=== PATIENT | female | born 1960 | race African-American/Black ===

== ENCOUNTER 2018-09-27 01:39 | Inpatient (IN) | payer MEDICAID ==
[~2018-09-27] VITALS: Ht 167.6 cm; Wt 63.0 kg
[2018-09-27] MEDS ORDERED: Ketorolac 60mg Inj IM ONE (02:00)
--- NOTE | 2018-09-27 02:07 | NUR ---
ED Nurse Note: pt brought in by [facility] from 09/28 store, c/c right knee pain, per EMS report, she slipped and fell, denies head injury, cms intact, will cont monitor.
[2018-09-27] MEDS ORDERED: HYDROcodone/Acetamin 5/325 tab ORAL ONE (02:15)
--- NOTE | 2018-09-27 03:40 | NUR ---
ED Nurse Note: Received with RLE pain - pt slipped on wet floor at 711. Pt admits to alcohol and marijuana ingestion. Pt is alert and oriented x 4. Right leg with obvious deformity superior to knee. N/V intact distally. Monitor SR, no ectopy.
[2018-09-27 03:45] VITALS: BP 136/83
[2018-09-27] MEDS ORDERED: Morphine Sulfate 4mg/ml Inj (IV USE ONLY) IVP ONE (03:45)
[2018-09-27 03:55] LABS: BASOPHILS % (AUTO) 0.9 % (0.0-2.0); EOSINOPHILS % (AUTO) 0.6 % (0.0-3.0); HEMATOCRIT 40.3 % (37.0-47.0); HEMOGLOBIN 12.9 G/DL (12.0-16.0); LYMPHOCYTES % (AUTO) 35.6 % (20.0-45.0); MEAN CORPUSCULAR VOLUME 94 FL (80-99); MONOCYTES % (AUTO) 6.8 % (1.0-10.0); NEUTROPHILS % (AUTO) 56.1 % (45.0-75.0); PLATELET COUNT 243 K/UL (150-450); RED BLOOD COUNT 4.28 M/UL (4.20-5.40); RED CELL DISTRIBUTION WIDTH 13.1 % (11.6-14.8); WHITE BLOOD COUNT 4.8 K/UL (4.8-10.8)
[2018-09-27 03:57] LABS: ANION GAP 11 mmol/L (5-15); BLOOD UREA NITROGEN 13 mg/dL (7-18); CALCIUM 9.1 MG/DL (8.5-10.1); CARBON DIOXIDE 28 MMOL/L (21-32); CHLORIDE 104 MMOL/L (98-107); CREATININE 1.1 MG/DL (0.55-1.30); POTASSIUM 3.5 MMOL/L (3.5-5.1); SODIUM 143 MMOL/L (136-145)
--- NOTE | 2018-09-27 03:58 | NUR ---
HAND-OFF: Report given to [facility], PT MOVED TO ROOM 6
--- NOTE | 2018-09-27 03:58 | NUR ---
HAND-OFF: Report given to AWA Ferguson.
[2018-09-27 04:01] LABS: ALANINE AMINOTRANSFERASE 47 U/L (12-78); ALBUMIN 4.5 G/DL (3.4-5.0); ALBUMIN/GLOBULIN RATIO 1.4 (1.0-2.7); ALKALINE PHOSPHATASE 112 U/L (46-116); ASPARTATE AMINO TRANSFERASE 88 U/L (15-37); BILIRUBIN,TOTAL 0.3 MG/DL (0.2-1.0)
--- NOTE | 2018-09-27 04:09 | Emergency Room Report ---
History of Present Illness General Chief Complaint: Lower Extremity Injury Source: Patient, EMS Present Illness HPI Patient is a 57-year-old female brought in by EMS after increased right-sided knee pain acute onset after a fall from standing. Patient reports slipping and falling on wet floor. She denies loss of consciousness. She reports having pain to the right thigh. She denies any numbness or weakness to her extremity. She reports having prior history of right knee surgery x2. She normally wears a sleeve on her right thigh. She reports having significant arthritis and had previously been told she needs a knee replacement surgery. Patient reports having recent alcohol intake. She denies any other locations of pain currently. Allergies: Coded Allergies: No Known Allergies (Unverified , 09/27/18) Patient History Past Medical History: see triage record Past Surgical History: other - right knee arthroscopy X2, osteoarthritis Reviewed Nursing Documentation: PMH: Agreed; PSxH: Agreed Review of Systems All Other Systems: negative except mentioned in HPI Physical Exam Vital Signs Date Time Temp Pulse Resp B/P (MAP) Pulse Ox O2 Delivery O2 Flow Rate FiO2 09/27/18 01:44 97.5 93 18 98/63 (75) 99 Room Air Sp02 EP Interpretation: reviewed, normal General Appearance: normal inspection, well appearing, no apparent distress, alert, GCS 15 Head: atraumatic ENT: normal ENT inspection, hearing grossly normal, normal voice Neck: normal inspection, full range of motion, supple, no bony tend Respiratory: normal inspection, lungs clear, normal breath sounds, no respiratory distress, no retraction, no wheezing Cardiovascular #1: regular rate, rhythm, no edema Gastrointestinal: normal inspection, normal bowel sounds, non tender, soft, no guarding, no hernia Genitourinary: no CVA tenderness Musculoskeletal: normal inspection, back normal, normal range of motion, swelling - deformity to right distal femur Neurologic: normal inspection, alert, oriented x3, responsive, daycare teacher III-XII nml as tested, motor strength/tone normal, speech normal Psychiatric: normal inspection, judgement/insight normal, mood/affect normal Medical Decision Making Diagnostic Impression: Primary Impression: Femoral distal fracture Additional Impression: Fall ER Course Patient is a 57-year-old female presented after increased right-sided knee pain. Differential diagnosis include was not limited to fracture, contusion, dislocation among others. Patient was noted to be unable to ambulate. She had gross deformity to the distal femur. X-ray imaging of the right knee 1 view interpreted by me showed a comminuted distal femur fracture. Patient was placed in a posterior splint. She is given IV pain medications. Dr. Ct Witt was contacted for inpatient management. Dr.Raj Teague was contacted for orthopedic consult Labs Test 09/27/18 03:33 White Blood Count 4.8 K/UL (4.8-10.8) Red Blood Count 4.28 M/UL (4.20-5.40) Hemoglobin 12.9 G/DL (12.0-16.0) Hematocrit 40.3 % (37.0-47.0) Mean Corpuscular Volume 94 FL (80-99) Mean Corpuscular Hemoglobin 30.2 PG (27.0-31.0) Mean Corpuscular Hemoglobin Concent 32.0 G/DL (32.0-36.0) Red Cell Distribution Width 13.1 % (11.6-14.8) Platelet Count 243 K/UL (150-450) Mean Platelet Volume 5.4 FL (6.5-10.1) Neutrophils (%) (Auto) 56.1 % (45.0-75.0) Lymphocytes (%) (Auto) 35.6 % (20.0-45.0) Monocytes (%) (Auto) 6.8 % (1.0-10.0) Eosinophils (%) (Auto) 0.6 % (0.0-3.0) Basophils (%) (Auto) 0.9 % (0.0-2.0) Prothrombin Time 10.2 SEC (9.30-11.50) Prothromb Time International Ratio 1.0 (0.9-1.1) Activated Partial Thromboplast Time 25 SEC (23-33) Sodium Level 143 MMOL/L (136-145) Potassium Level 3.5 MMOL/L (3.5-5.1) Chloride Level 104 MMOL/L (98-107) Carbon Dioxide Level 28 MMOL/L (21-32) Anion Gap 11 mmol/L (5-15) Blood Urea Nitrogen 13 mg/dL (7-18) Creatinine 1.1 MG/DL (0.55-1.30) Estimat Glomerular Filtration Rate > 60 mL/min (>60) Glucose Level 122 MG/DL (74-106) Calcium Level 9.1 MG/DL (8.5-10.1) Total Bilirubin 0.3 MG/DL (0.2-1.0) Aspartate Amino Transf (AST/SGOT) 88 U/L (15-37) Alanine Aminotransferase (ALT/SGPT) 47 U/L (12-78) Alkaline Phosphatase 112 U/L (46-116) Total Protein 7.8 G/DL (6.4-8.2) Albumin 4.5 G/DL (3.4-5.0) Globulin 3.3 g/dL Albumin/Globulin Ratio 1.4 (1.0-2.7) EKG Diagnostic Results Rate: normal Rhythm: NSR ST Segments: no acute changes Last Vital Signs Date Time Temp Pulse Resp B/P (MAP) Pulse Ox O2 Delivery O2 Flow Rate FiO2 09/27/18 03:45 83 16 136/83 97 Room Air 09/27/18 01:44 97.5 Status: improved Disposition: ADMITTED INPATIENT Condition: Stable Referrals: NOT CHOSEN IPA/,REFERRING (PCP) Keo Moncada MD Sep 27, 2018 04:09
--- NOTE | 2018-09-27 04:10 | NUR ---
ED Nurse Note: Patient was admited to MS due to distal femoral fracture. Patient was transfered to the unit via gurney with all belongings. AAO x4, VSS at this time, skin is dry warm to touch.
--- NOTE | 2018-09-27 06:30 | NUR ---
NURSE NOTES: Received report from AWA Ferguson from ER. Will endorse to oncoming shift.
--- NOTE | 2018-09-27 06:45 | NUR ---
NURSE NOTES: Patient brought in via erney to room 315-2. Alert, oriented. Bed in low position, side rails up x2, call light within reach. Oriented to room. Encouraged to call as needed. Right knee with long posterior splint on. VS: Temp 97.8, HR 82, RR 19, BP 117/79, O2Sat on RA 98%. Will endorse to dayshift RN.
--- NOTE | 2018-09-27 07:05 | NUR ---
HAND-OFF: Report given to AWA Gilliland.
[2018-09-27 08:00] VITALS: BP 112/73
--- NOTE | 2018-09-27 08:10 | NUR ---
NURSE NOTES: Patient alert x4, on room air, no sing of distress and shortness of breath; no sing of chest pain; IV FACE 20G, flushes well; bed at lowest position, side rials up x2, breaks engaged; call light within reach; will get admission order from admitting MD. will keep monitoring.
--- NOTE | 2018-09-27 08:59 | Consultation ---
History of Present Illness General Date patient seen: Sep 27, 2018 Chief Complaint: Present Illness Allergies: Coded Allergies: No Known Allergies (Unverified , 09/27/18) Patient History Healthcare decision maker Resuscitation status Advanced Directive on File Physical Exam Last 24 Hour Vital Signs Date Time Temp Pulse Resp B/P (MAP) Pulse Ox O2 Delivery O2 Flow Rate FiO2 09/27/18 04:10 97.6 83 16 136/83 97 Room Air 09/27/18 03:45 83 16 136/83 97 Room Air 09/27/18 02:46 97.6 09/27/18 02:46 97.6 09/27/18 02:46 97.6 09/27/18 01:44 97.5 93 18 98/63 (75) 99 Room Air Intake and Output 09/26/18 09/27/18 19:00 07:00 Intake Total 10 ml Balance 10 ml Intake IV Total 10 ml Laboratory Tests Test 09/27/18 03:33 White Blood Count 4.8 K/UL (4.8-10.8) Red Blood Count 4.28 M/UL (4.20-5.40) Hemoglobin 12.9 G/DL (12.0-16.0) Hematocrit 40.3 % (37.0-47.0) Mean Corpuscular Volume 94 FL (80-99) Mean Corpuscular Hemoglobin 30.2 PG (27.0-31.0) Mean Corpuscular Hemoglobin Concent 32.0 G/DL (32.0-36.0) Red Cell Distribution Width 13.1 % (11.6-14.8) Platelet Count 243 K/UL (150-450) Mean Platelet Volume 5.4 FL (6.5-10.1) L Neutrophils (%) (Auto) 56.1 % (45.0-75.0) Lymphocytes (%) (Auto) 35.6 % (20.0-45.0) Monocytes (%) (Auto) 6.8 % (1.0-10.0) Eosinophils (%) (Auto) 0.6 % (0.0-3.0) Basophils (%) (Auto) 0.9 % (0.0-2.0) Prothrombin Time 10.2 SEC (9.30-11.50) Prothromb Time International Ratio 1.0 (0.9-1.1) Activated Partial Thromboplast Time 25 SEC (23-33) Sodium Level 143 MMOL/L (136-145) Potassium Level 3.5 MMOL/L (3.5-5.1) Chloride Level 104 MMOL/L (98-107) Carbon Dioxide Level 28 MMOL/L (21-32) Anion Gap 11 mmol/L (5-15) Blood Urea Nitrogen 13 mg/dL (7-18) Creatinine 1.1 MG/DL (0.55-1.30) Estimat Glomerular Filtration Rate > 60 mL/min (>60) Glucose Level 122 MG/DL (74-106) H Calcium Level 9.1 MG/DL (8.5-10.1) Total Bilirubin 0.3 MG/DL (0.2-1.0) Aspartate Amino Transf (AST/SGOT) 88 U/L (15-37) H Alanine Aminotransferase (ALT/SGPT) 47 U/L (12-78) Alkaline Phosphatase 112 U/L (46-116) Total Protein 7.8 G/DL (6.4-8.2) Albumin 4.5 G/DL (3.4-5.0) Globulin 3.3 g/dL Albumin/Globulin Ratio 1.4 (1.0-2.7) Height (Feet): 5 Height (Inches): 6.00 Weight (Pounds): 140 Assessment/Plan Assessment/Plan: (1) Right knee pain (2) S/P Fall (3) Distal femur fx (4) Right knee OA seen dictated Suhail Valero Sep 27, 2018 08:59
[2018-09-27] MEDS: Morphine Sulfate 4mg/ml Inj (IV USE ONLY) IVP PRN ×2 (09:25→17:22)
--- NOTE | 2018-09-27 09:36 | NUR ---
NURSE NOTES: I communicated MD Treviño to get admission order. Waiting for order.
[2018-09-27 12:00] VITALS: BP 129/83
[2018-09-27] MEDS: HYDROcodone/Acetamin 10/325 tab ORAL PRN ×2 (12:29→20:31)
--- NOTE | 2018-09-27 14:04 | NUR ---
CHARGE NURSE NOTE: Received call from [facility] ([place]). She asked for pt's face sheet. She informed that pt will be transferred to [facility] (according to for distal femur fracture surgery). So far no bed available. Pt is on NPO. was called, message left.
--- NOTE | 2018-09-27 14:45 | Diagnostic Imaging Report ---
Indications: Right knee pain after slip and fall Technique: Two views of the right femur Comparison: None Findings: There is a comminuted fracture of the distal femoral diaphysis. This is displaced laterally by about one half bone width, impacted by about 2 cm. No definite proximal fracture demonstrated, although the proximal femur is not well visualized. Impression: Positive for distal femoral fracture
--- NOTE | 2018-09-27 15:00 | NUR ---
NURSE NOTES: Specimen for urine collection provided to patient. music assistant Michael is aware.
--- NOTE | 2018-09-27 15:29 | Diagnostic Imaging Report ---
Indication: Cough Technique: One view of the chest Comparison: none Findings: Lungs and pleural spaces are clear. Heart size is normal Impression: No acute process
[2018-09-27 16:00] VITALS: BP 135/84
--- NOTE | 2018-09-27 17:43 | NUR ---
CASE MANAGEMENT: INITIAL REVIEW 09/27/2018 57 YO F ROSSI FROM 09/28 STORE CC: LOWER EXTREMITY INJURY PMHx: RIGHT KNEE ARTHROSCOPY X2. OA. SI:DISTAL FEMUR FRACTURE. T 97.5 HR 93 RR 18 B/P 98/63 SATS 99% ON RA GLU 122 AST 88 IS: NS BOLUS X1 MORPHINE IV X1 XRAY FEMUR Impression: Positive for distal femoral fracture CXR Impression: No acute process PATIENT ADMITTED TO MED/SURG 09/27/2018 @ 0420 DCP: PATIENT TO BE DISCHARGED TO HOME ONCE MEDICALLY CLEARED. PLAN OF CARE: ORTHO CONSULT Addendum: 09/28/18 at 1028 by Gwen Brown CM INTERQUAL MET
--- NOTE | 2018-09-27 19:44 | NUR ---
HAND-OFF: Report given to AWA [place].
--- NOTE | 2018-09-27 19:45 | NUR ---
NURSE NOTES: Receive a report from AWA Magana. Done rounds. Pt is lying in bed with right leg immobilized. Awake and alert. Will continue to monitor.
[2018-09-27 20:00] VITALS: BP 145/86
[2018-09-27] MEDS: Heparin 5000 units/ml inj SUBQ SCH (20:32)
--- NOTE | 2018-09-27 21:00 | Consultation ---
DATE OF CONSULTATION: 09/27/2018 CONSULTING PHYSICIAN: León Teague M.D. CHIEF COMPLAINT: Right leg pain. HISTORY OF PRESENT ILLNESS: The patient is a 57-year-old female who sustained a fall at a certain level and subsequently had significant pain in the right thigh. She was brought to the hospital, diagnosed with a distal femur fracture. Orthopedic consultation obtained for further care and recommendation. PAST MEDICAL HISTORY: Reviewed in the intake chart. PAST SURGICAL HISTORY: Reviewed in the intake chart. MEDICATIONS: Reviewed in the intake chart. PHYSICAL EXAMINATION: General: Alert and oriented. Resting comfortably in bed. Vitals signs stable. No apparent distress EXTREMITIES: Shows posterior splint in place. There is moderate swelling in the right thigh. Dorsalis pedis +2. Posterior calf is soft. Neurovascular is normal. DIAGNOSTIC DATA: Imaging study showed comminuted distal third femur fracture with extension in the intra-articular joint on the lateral view. Moderate arthritis of knee joint. ASSESSMENT: Left comminuted distal third right femur fracture. DISCUSSION: At this point, the patient needs operative fixation with open reduction and internal fixation either with a nail or plate. She has moderate swelling at this point. Given the complexity of the fracture, she needs to be transferred to a higher level of care. I have spoken to Dr Ma who is a traumatologist at [facility] who is willing to accept transfer of her care for higher level of care. I have spoken to [facility] transfer center and placed her on the transfer list. They currently do not have any beds but she will be placed on the list for transfer pending verification. Given the level of care and the comminution at the fracture site, this is not something that I feel comfortable addressing. The patient is in no acute risk of having any loss of function of a limb. More importantly I am leaving Tuesday for a couple of weeks and do not feel comfortable performing complicated surgery and not being available for any issues postop. Patient will need CT of right femur which can be done by accepting facility. She is maintained on SCD and heparin 5000 units SQ for DVT prophalsis. Continue splint and elevation to allow time for swelling to decrease. Pain management as per PMD. I spoke to patient and communited my concerns with the patient who understands my concerns and is willing to get transfer to another facility for definetive fixation. Please reconsult as needed however I am not available for the next 2-3 weeks. León Teague M.D. DR: XANDER JOB#: [id number] CC: DANNA
--- NOTE | 2018-09-27 21:00 | NUR ---
NURSE NOTES: Pt is awake alert. Breathing is even and non labored. Right leg on fx site pain persist. Given prn [place] 10/325mg 1 t po. Keep right leg straightened. Pt has not voided for urine lab yet. Leave call light within reach. Bed is locked and lowest position. Will continue to follow up urine sample and pt's pain.
[2018-09-28] VITALS: BP 135/86
[2018-09-28] MEDS: Morphine Sulfate 4mg/ml Inj (IV USE ONLY) IVP PRN ×3 (02:02→20:26)
--- NOTE | 2018-09-28 03:30 | Consultation ---
DATE OF CONSULTATION: 09/27/2018 PAIN MANAGEMENT CONSULTATION CONSULTING PHYSICIAN: Fab Gross M.D. REFERRING PHYSICIAN: Ct Treviño M.D. PHYSICIAN TUMBLER DYEING MACHINE OPERATOR: Eldon Lemon CHIEF COMPLAINT: Right knee pain. HISTORY OF PRESENT ILLNESS: This is a 57-year-old female, who is being seen on telemetry floor of [facility] for initial pain management consultation. The patient was admitted under the care of Dr. Treviño for right knee pain. Reports that she had a fall last night. It is acute, constant, rating at 8/10, describing the pain as throbbing and shooting pain, increased with movement causing pain. She reports that she had a slip and fall in a 09-28. She was brought into the emergency room. X-ray was done, positive for distal femoral fracture. Awaiting to be seen by orthopedic surgeon. She has taken morphine 4 mg IV in the ER with Toradol 30 mg IV with minimal pain relief. Due to this, we were consulted so patient has adequate pain control while here in the hospital. PAST MEDICAL HISTORY: Graves disease. PAST SURGICAL HISTORY: Right knee surgery. SOCIAL HISTORY: She is smoker. Drinks alcohol. Denies IV drugs. ALLERGIES: No known drug allergies. MEDICATIONS: Levothyroxine. REVIEW OF SYSTEMS: Denies rash, fever, chills, sweating, dizziness, drowsiness, blurred vision, sore throat, or change in weight. No shortness of breath or chest pain. No nausea, vomiting, or blood in stool or urine. No bowel or bladder incontinence. PHYSICAL EXAMINATION: GENERAL: Alert, awake, and oriented. VITAL SIGNS: Blood pressure 136/83, heart rate 83, oxygen saturation is 97%, and respiratory rate 16. HEENT: PERRLA. NECK: Range of motion is full in all directions. No tenderness to paracervical muscles. No adenopathy. LUNGS: Decreased breath sounds bilaterally. HEART: S1 and S2 regular. ABDOMEN: Soft, nontender. BACK: Range of motion is full in extension. EXTREMITIES: Upper extremities range of motion is full in all directions. No cyanosis. No clubbing. No edema. Sensory is intact. Reflexes are not obtainable. No adenopathy. Lower extremities, range of motion is decreased due to the patient's pain and condition with tenderness to palpation of the right knee. No cyanosis. No clubbing. Sensory is reduced. Reflexes are not obtainable. No adenopathy. ASSESSMENT AND PLAN: This is a 57-year-old female with right knee pain status post fall, distal femur fracture and right knee osteoarthritis. The patient will be started on morphine 4 mg IV every 4 hours as needed for severe breakthrough pain and [place] 10/325 mg every 4 hours as needed for moderate pain. The patient was discussed with Dr. Gross and Dr. Gross concurred. We will follow the patient. Thank you very much for the courtesy of this consultation. Fab Gross M.D. ED Lemon DR: SAUL JOB#: [id number] CC: DANNA
[2018-09-28 04:30] VITALS: BP 149/92
--- NOTE | 2018-09-28 04:40 | NUR ---
NURSE NOTES: Pt is awake and alert. Right leg pain r/t fracture persist while changing position. Noted bladder distension and voiding sensation. Pt has been trying to void while turning on water, putting hand in the water, drinking water but has not voided yet. Pt refuses catheterization. Done bladder scan and shown about 700ml urine in the bladder. Will contact to MD for not voiding yet. Will continue to monitor.
--- NOTE | 2018-09-28 06:15 | NUR ---
NURSE NOTES: Called to Dr. Treviño but was unable to talk to him and left a message for pt's unable voiding and for confirming home medication. Will endorse AM shift accordingly and will continue to monitor.
--- NOTE | 2018-09-28 06:45 | NUR ---
NURSE NOTES: Called back from Dr. Treviño. Receive orders to insert keys catheterization, to switch Morphine 4mg IVP from Q6hrs to 4hrs, to discontinue IV fluid, and to consult with Dr. Che. Order noted and carried out.
--- NOTE | 2018-09-28 07:30 | NUR ---
NURSE NOTES: Notified Dr. Treviño that pt refused F/C insert; ordered urology consult and NPO for possible surgery today. Notified pt who verbalized understanding. Endorsed to morning shift RNJenna.
--- NOTE | 2018-09-28 07:30 | NUR ---
NURSE NOTES: Patient is in bed awake and able to verbalize needs. Stable. Patient complains of pain when moving. Patient encouraged to call nurse if able to urinate, verbalized understanding. Patient in bed in locked and lowest position with call light within reach. Will continue to monitor.
--- NOTE | 2018-09-28 07:30 | NUR ---
HAND-OFF: Report given to AWA West. Done round.
[2018-09-28 08:00] VITALS: BP 143/86
--- NOTE | 2018-09-28 08:07 | NUR ---
NURSE NOTES: Paged Dr. Alvarez regarding inability to void. Awaiting response.
--- NOTE | 2018-09-28 09:00 | NUR ---
NURSE NOTES: keys catheter inserted as ordered, tolerated well. Urine draining into bag. 900cc of urine noted in bag.
--- NOTE | 2018-09-28 09:32 | General Progress Note ---
Assessment/Plan Assessment/Plan: (1) Right knee pain (2) S/P Fall (3) Distal femur fx (4) Right knee OA Patient to be continued on Morphine and norco. D/w Dr. Gross and he concurred. Subjective Date patient seen: Sep 28, 2018 Time patient seen: 08:30 - am Allergies: Coded Allergies: No Known Allergies (Unverified , 09/27/18) Subjective REVIEW OF SYSTEMS: Denies rash, fever, chills, sweating, dizziness, drowsiness, blurred vision, sore throat, or change in weight. No shortness of breath or chest pain. No nausea, vomiting, or blood in stool or urine. Complaining of right knee pain SUBJECTIVE: Patient is in bed and pain has been tolerated on the Morphine and [place]. Was seen by ortho who is trying to have patient transferred to higher level of care facility for surgery. Objective Last 24 Hour Vital Signs Date Time Temp Pulse Resp B/P (MAP) Pulse Ox O2 Delivery O2 Flow Rate FiO2 09/28/18 04:30 97.8 58 18 149/92 (111) 95 09/28/18 00:00 98.6 72 24 135/86 (102) 98 09/27/18 21:00 Room Air 09/27/18 20:00 98.9 83 20 145/86 (105) 98 09/27/18 17:52 97.7 09/27/18 16:00 97.7 70 18 135/84 (101) 98 70 09/27/18 12:59 98.2 09/27/18 12:00 98.2 75 18 129/83 (98) 100 75 09/27/18 10:21 Room Air Intake and Output 09/27/18 09/28/18 19:00 07:00 Intake Total 900 ml 1175 ml Balance 900 ml 1175 ml Intake Oral 600 ml 500 ml IV Total 300 ml 675 ml # Voids 1 Height (Feet): 5 Height (Inches): 6.00 Weight (Pounds): 139 Objective GENERAL: Alert, awake, and oriented. LUNGS: Decreased breath sounds bilaterally. HEART: S1 and S2 regular. ABDOMEN: Soft, nontender. BACK: Range of motion is full in extension. EXTREMITIES: Lower extremities, range of motion is decreased due to the patient's pain and condition with tenderness to palpation of the right knee. No cyanosis. No clubbing. NEURO: No changes. Suhail Valero Sep 28, 2018 09:32
[2018-09-28] MEDS: Heparin 5000 units/ml inj SUBQ SCH ×2 (09:38→20:27)
[2018-09-28] MEDS ORDERED: D5 1/2NS 1,000 ML IV SCH (11:00)
--- NOTE | 2018-09-28 11:33 | NUR ---
DISCHARGE/TRANSFER: NOTE CLINICALS FAXED TO PT TO BE PLACED ON [facility] LIST FOR TRANSFER TO [facility] Addendum: 09/28/18 at 1222 by Gwen Brown CM CLINICALS FAXED TO [facility] F: [phone] Addendum: 09/28/18 at 1725 by Gwen Brown CM PATIENT HAS BEEN ACCEPTED TO [facility]. BED ASSIGNMENT PENDING. NURSING STAFF MADE AWARE. AMADA CALERO [phone] WITH NUMBER FOR DIRECT NURSES STATION NUMBER.
[2018-09-28 12:00] VITALS: BP 153/88
[2018-09-28 12:00] LABS: APPEARANCE,URINE CLEAR; BILIRUBIN, URINE NEGATIVE (NEGATIVE); GLUCOSE, URINE (UA) NEGATIVE (NEGATIVE); KETONES,URINE 2+ (NEGATIVE); LEUKOCYTE ESTERASE ,URINE NEGATIVE (NEGATIVE); NITRITE,URINE NEGATIVE (NEGATIVE); PH,URINE 6 (4.5-8.0); PROTEIN,URINE 1+ (NEGATIVE); UROBILINOGEN,URINE NORMAL MG/DL (0.0-1.0)
[2018-09-28 12:29] LABS: COLOR,URINE YELLOW
--- NOTE | 2018-09-28 13:15 | History and Physical Report ---
DATE OF ADMISSION: 09/27/2018 HISTORY OF PRESENT ILLNESS: The patient comes in with right distal femur fracture after a trip and fall at a store, prior history of arthritis. before admission and complained of pain in that area. Denies nausea, vomiting, diarrhea, fever, or chills. Denies abdominal pain. Denies shortness of breath. Denies cough. PAST MEDICAL HISTORY: Degenerative joint disease, . PAST SURGICAL HISTORY: surgery and right knee surgery. SOCIAL HISTORY: History of smoking. History of drug and alcohol abuse. MEDICATIONS: . ALLERGIES: No known allergies. REVIEW OF SYSTEMS: HEENT: Denies headaches. Denies shortness of breath. Denies cough. CARDIAC: Denies chest pain. GASTROINTESTINAL: Denies nausea, vomiting, or diarrhea. EXTREMITIES: Pain in the right hip after a fall. However, the pain is mostly due to fractures in the right hip. both sides. LABORATORY DATA: WBC of 4.8, hemoglobin 12.9, and platelets of 243,000. Sodium 143, potassium 3.5, BUN of 13, and creatinine 1.1. ASSESSMENT AND PLAN: Right distal femur fracture after a trip and fall in a store. Dr. Teague and Dr. Gross have been consulted. Dr. Teague states that the patient needs to be transferred to the service of . since it is a complicated surgery. According to Dr. Teague, there is evidence for . Pain management per Dr. Gross. We will monitor the patient and we will p.r.n., give IV fluids. Ct Treviño M.D. DR: SILVESTRE JOB#: [id number] CC:
[2018-09-28 16:00] VITALS: BP 162/90
--- NOTE | 2018-09-28 16:22 | NUR ---
CASE MANAGEMENT: REVIEW 09/28/2018 SI:DISTAL FEMUR FRACTURE. T 98.6 HR 66 RR 18 B/P 153/88 SATS 97% ON RA TSH 14.081 FREE T4 0.54 IS: IVF @ 75 mL/HR LIDOCAINE TDERMAL QD SYNTHROID PO QD GABAPENTIN PO TID MED/SURG STATUS DCP: PATIENT TO BE DISCHARGED TO HOME ONCE MEDICALLY CLEARED. PLAN OF CARE: TRANSFER TO [facility]
--- NOTE | 2018-09-28 17:25 | Consultation ---
Consult Note Consult Note asked to eval for urinary retention admitted for femoral distal FX ER: Patient is a 57-year-old female brought in by EMS after increased right-sided knee pain acute onset after a fall from standing. Patient reports slipping and falling on wet floor. She denies loss of consciousness. She reports having pain to the right thigh. She denies any numbness or weakness to her extremity. She reports having prior history of right knee surgery x2. She normally wears a sleeve on her right thigh. She reports having significant arthritis and had previously been told she needs a knee replacement surgery. Patient reports having recent alcohol intake. She denies any other locations of pain currently. No Known Allergies (Unverified , 09/27/18) examined data reviewed . Assessment/Plan urine retention HypoThyroid- TSH 14 HTN . mild-Moderate Ortho intervention Agreed to keys Synthroid Urine Tox screen BP control Brandon Hardy MD Sep 28, 2018 17:25
[2018-09-28] MEDS ORDERED: Docusate 100mg cap ORAL SCH (18:00)
--- NOTE | 2018-09-28 18:26 | NUR ---
NURSE NOTES: Called [facility] to give report, Kevin RN said nurse is busy and unable to take report at this time. Will try again. Medication reconciliation done by charge nurse. Patient made aware of transfer.
--- NOTE | 2018-09-28 18:54 | NUR ---
NURSE NOTES: Called [facility] to give report x2 more attempts. [facility] charge nurse Kassandra and other RNs did not receive report. Will attempt to give report again.
--- NOTE | 2018-09-28 19:10 | NUR ---
NURSE NOTES: gave report to [facility] charge nurse Kassandra BILLINGS. Awaiting ambulance pickup
--- NOTE | 2018-09-28 19:36 | NUR ---
HAND-OFF: Report given to Freddie BILLINGS. Patient is stable, awaiting sweet pickle maker from [facility].
--- NOTE | 2018-09-28 19:40 | NUR ---
NURSE NOTES: Receive a report from [facility]. Dr. Teague was in pt's room. Order for Nicotin patch. Order noted and carried out. Pt aware of waiting for pickup. Will continue to update.
--- NOTE | 2018-09-28 20:30 | NUR ---
NURSE NOTES: Pt is awake and alert. No acute distress noted. Explain for Nicotin patch 14mg and apply it on right upper chest. Administer prn pain medication, Morphine 4mg IVP d/t right leg pain. Right leg has been immobilized with splint. Motor and sense intact. Barker catheterization 16 Fr. inserted state and patent with yellowish urine without hematuria/sediments. IV site on right AC is patent without infiltration. Will continue to monitor.
[2018-09-28] MEDS ORDERED: D5 1/2NS 1000ml IV ONE ×2 (21:19)
--- NOTE | 2018-09-28 21:20 | NUR ---
@2100 Arrived 2 metal sprayer from [facility] with rebecca. Report pt's conditions, medication and reason for transferring. Provide paperwork. Ask them to stop by registration at transferring hospital before going to unit. Pt has been checked up by their protocols. @2119 Pt left the facility via gurney with her belongings for further treatment @ [facility].
--- NOTE | 2018-09-29 09:13 | Discharge Summary ---
Discharge Summary Discharge Summary _ DATE OF ADMISSION: 09/27/2018 DATE OF DISCHARGE: 09/28/2018 DISCHARGED BY: Dr. Ct العراقي CONSULTANTS: Dr. Brandon Teague BRIEF HOSPITAL COURSE: Patient is a 57-year-old female, who was brought in by EMS after increased right -sided knee pain, acute in onset, after a fall. Patient reported a slip and fall on a wet floor. She denied any loss of consciousness. She reported pain to the right thigh. She denied any numbness or weakness to the extremity. She reported prior history of right knee surgery x2. She has history of significant arthritis and had previously been told she needed knee replacement surgery. Patient reported recent alcohol intake. On evaluation at ED, blood pressure was 98/63, pulse rate 93, 99% saturation on room air. Blood work did not show any leukocytosis. Hemoglobin and hematocrit were stable. Electrolytes were normal. Patient had gross deformity noted on the distal femur. X-ray imaging of the right knee 1 view showed a comminuted distal fracture. The patient was placed in a posterior splint. She was given IV pain medications. She was then admitted for inpatient management. Orthopedic consultation was obtained. Review of imaging studies showed a comminuted distal third femur fracture with extension into the intra-articular joint on the lateral view. Moderate arthritis of the knee joint. Patient was informed of need for operative fixation with open reduction and internal fixation either with a nail or plate. Patient had moderate swelling and given the complexity of the fracture, patient needs to be transferred to a higher level of care. Patient was placed on MAC list. CT imaging to be done at the accepting facility. She was continued on heparin subcut and SCDs for DVT prophylaxis. She was advised to continue splint and to elevate leg to allow swelling to decrease. She was given pain management. TSH was 14. She was given Synthroid 100 mcg daily. She complained of inability to void. Bladder scan showed 700 mL urine in the bladder. Patient had urinary retention. Barker catheter was inserted and drained approximately 900 cc of urine. She was eventually transferred to [facility]. FINAL DIAGNOSES: Comminuted distal third right femur fracture status post fall Urinary retention Hypothyroidism Hypertension DISPOSITION: Patient was transferred to [facility]. I have been assigned to complete a discharge summary on this account, I was not involved with the patient's management.--JOHN Fine Jacqueline Robles NP Sep 29, 2018 09:13
== END 2018-09-28 21:20 | DRG 340 ==
LOC: EDBD 01:39 → EMR 02:08 → 3E 04:20 → EDBEDREQ 05:35
DX: S72.491A Other fracture of lower end of right femur, initial encounter for closed fracture (principal); E03.9 Hypothyroidism, unspecified; M17.11 Unilateral primary osteoarthritis, right knee; W01.0XXA Fall on same level from slipping, tripping and stumbling without subsequent striking against object, initial encounter; Y92.512 Supermarket, store or market as the place of occurrence of the external cause; R33.9 Retention of urine, unspecified; I10 Essential (primary) hypertension; F17.200 Nicotine dependence, unspecified, uncomplicated
CPT/HCPCS: 36415; 71045; 80053; 81001; 84439; 84443; 85025; 85610; 85730; 86850; 86900; 86901; 93005; 96361; 96372; 96374; 99285

== ENCOUNTER 2020-06-16 09:41 | Emergency (ER) | payer MEDICAID, OTHER ==
[~2020-06-16] VITALS: Ht 157.5 cm; Wt 61.2 kg
[2020-06-16 10:10] VITALS: BP 142/80
--- NOTE | 2020-06-16 10:12 | NUR ---
ED Nurse Note:pt with right wrist swelling and pain. good cms distally.
--- NOTE | 2020-06-16 11:32 | NUR ---
ED Nurse Note:wrist splint applied by teresa thompson. good cms remains
[2020-06-16] MEDS ORDERED: ACETAMINOPHEN-1 EAC1 ORAL (11:39)
--- NOTE | 2020-06-16 12:10 | NUR ---
ED Nurse Note: Pt cleared by health care Provider for discharge. DC instructions/prescription was given and explained to pt and verbalized understanding of teachings. All medical devices such as ID band removed. Pt is AAO x4, ambulatory and left with all personal belongings.
[2020-06-16 12:11] VITALS: BP 142/80
--- NOTE | 2020-06-16 12:19 | Emergency Room Report ---
History of Present Illness General Chief Complaint: Upper Extremity Injury Source: Patient Present Illness HPI 59-year-old female presents with right wrist pain and swelling. States that she fell off a hover board scooter scooter yesterday. Landed on her right outstretched wrist. Notes pain and swelling to the right wrist. Pain is throbbing, 10 out of 10, nonradiating. Denies any other injuries. No other aggravating relieving factors. Denies any other associated symptoms Allergies: Coded Allergies: No Known Allergies (Unverified , 09/27/18) COVID-19 Screening Contact w/high risk pt: No Experienced COVID-19 symptoms?: No COVID-19 Testing performed [employer]: No Patient History Past Medical History: HTN Past Surgical History: none Pertinent Family History: none Social History: Denies: smoking, alcohol use, drug use Last Menstrual Period: na Now: No Immunizations: UTD Reviewed Nursing Documentation: PMH: Agreed; PSxH: Agreed Nursing Documentation-PMH Hx Cardiac Problems: Yes Hx Cancer: No Hx Gastrointestinal Problems: Yes Hx Neurological Problems: No Review of Systems All Other Systems: negative except mentioned in HPI Physical Exam Vital Signs Date Time Temp Pulse Resp B/P (MAP) Pulse Ox O2 Delivery O2 Flow Rate FiO2 06/16/20 10:07 97.2 107 20 142/80 (100) 99 Room Air Sp02 EP Interpretation: reviewed, normal General Appearance: no apparent distress, alert, GCS 15, non-toxic Head: normocephalic, atraumatic Eyes: bilateral eye normal inspection, bilateral eye PERRL ENT: hearing grossly normal, normal pharynx, no angioedema, normal voice Neck: full range of motion, supple/symm/no masses Respiratory: chest non-tender, lungs clear, normal breath sounds, speaking full sentences Cardiovascular #1: regular rate, rhythm, no edema Cardiovascular #2: 2+ carotid (R), 2+ carotid (L), 2+ radial (R), 2+ radial (L), 2+ dorsalis pedis (R), 2+ dorsalis pedis (L) Gastrointestinal: normal bowel sounds, non tender, soft, non-distended, no guarding, no rebound Rectal: deferred Genitourinary: normal inspection, no CVA tenderness Musculoskeletal: back normal, normal range of motion, gait/station normal, tender - R wrist TTP/swelling Neurologic: alert, motor strength/tone normal, oriented x3, sensory intact, responsive, speech normal Psychiatric: judgement/insight normal, memory normal, mood/affect normal, no suicidal/homicidal ideation Reflexes: 3+ bicep (R), 3+ bicep (L), 3+ tricep (R), 3+ tricep (L), 3+ knee (R), 3+ knee (L) Lymphatic: no adenopathy Procedures Splinting Splinting : Consent: Verbal Hand-Made Type: plaster Splint: volar Pre-Proc Neuro Vasc Exam: normal Post-Proc Neuro Vasc Exam: normal Patient Tolerated: Well Complications: None Medical Decision Making Diagnostic Impression: Primary Impression: Wrist fracture Qualified Codes: S62.101A - Fracture of unspecified carpal bone, right wrist, initial encounter for closed fracture ER Course Hospital Course 59-year-old female presents with right wrist pain status post fall Differential diagnoses include: Fracture, dislocation, sprain, contusion Clinical course Patient placed on stretcher. After initial history and physical, I ordered xrays of right hand and wrist Xrays prelim read shows distal radius/ulna fx. placed in volar splint I discussed findings with patient. Will provide Ortho referral. Safe for discharge with close outpatient follow-up Diagnosis - wrist fracture Stable and discharged to home with prescription for Tylenol #3. apply ice, keep elevated. Followup with PMD. Return to ED if symptoms recur or worsen Other X-Ray Diagnostic Results Other X-Ray Diagnostic Results #1: X-Ray ordered: R hand # of Views/Limited Vs Complete: 3 View Indication: Pain EP Interpretation: Yes Interpretation: no dislocation, other - Radius fracture Impression: Other - Fracture Electronically Signed by: Electronically signed by Chi Alex MD Other X-Ray Diagnostic Results #2: X-Ray ordered: Right wrist # of Views/Limited Vs Complete: 3 View Indication: Pain EP Interpretation: Yes Interpretation: no dislocation, other - Radius fracture Impression: Other - Fracture Electronically Signed by: Electronically signed by Chi Alex MD Last Vital Signs Date Time Temp Pulse Resp B/P (MAP) Pulse Ox O2 Delivery O2 Flow Rate FiO2 06/16/20 10:10 97.2 107 20 142/80 99 Room Air Status: improved Disposition: HOME, SELF-CARE Condition: Stable Scripts Acetaminophen With Codeine (T#3) (TYLENOL #3 TAB*) Y Tab 1 TAB ORAL Q8H PRN for For Pain, #12 TAB Prov: Chi Alex MD 06/16/20 [facility] Open 24 hour /7 days a week by Appointment Only [address] [facility] [id number] Patient Instructions: Wrist Fracture With [facility] Chi Alex MD Jun 16, 2020 12:19
--- NOTE | 2020-06-16 12:40 | Diagnostic Imaging Report ---
Clinical Indication:Right wrist pain Technique: 3 views of the right wrist Comparison: None Findings: There is an impacted fracture of the distal radius, nondisplaced. Lucency in the ulnar styloid does not appear to violate the cortex there are degenerative changes of the first carpometacarpal joint. No dislocation Impression: Positive for distal radial fracture Questionable nondisplaced ulnar styloid fracture.
--- NOTE | 2020-06-16 12:42 | Diagnostic Imaging Report ---
Indication: Right hand pain Technique: 3 views right hand Comparison: none Findings: There is a fracture of the distal radius and very equivocally of the ulnar styloid. No carpal or hand fracture demonstrated. There are degenerative changes of the second through fifth distal and proximal interphalangeal joints and of the first carpometacarpal joint. Impression: Positive for distal radial fracture Degenerative changes, as described
== END 2020-06-16 12:15 | disposition home or self-care (01) ==
LOC: EMR 10:36
DX: S52.501A Unspecified fracture of the lower end of right radius, initial encounter for closed fracture (principal); I10 Essential (primary) hypertension; V00.848A Other accident with standing micro-mobility pedestrian conveyance, initial encounter; Y92.9 Unspecified place or not applicable
CPT/HCPCS: 29125; 73110; 73130; Z7502; 99284